=== PATIENT | female | born 1970 | race Two or more races ===

== ENCOUNTER → 2025-02-07 | Outpatient (CLI) | payer OTHER, SELFPAY ==
--- NOTE | 2025-02-07 11:15 | XR_ITS ---
Examination: Screening digital mammography, bilateral Computer aided detection 3-D breast Tomosynthesis, bilateral Date and time of exam: February 07, 2025 1120 hours Compared to mammograms dating to July 25, 2018 Indication: Screening Technique: Nonmagnified MLO, CC views of the breasts to been obtained, reconstructed from 3-D Tomosynthesis images. R2 computer aided detection program utilized for evaluation of suspicious masses and/or abnormal calcifications. 3-D Tomosynthesis images obtained. Findings: Scattered areas of fibroglandular density Breast biopsy marker upper outer right breast Focal asymmetry remains 10 mm inner right breast on the CC view Impression: BI-RADS Category 0: Incomplete: Need additional imaging evaluation Given the right breast biopsy 2022 11:00 nodule, recommend follow-up right breast sonography to compare with the October 15, 2022 exam
== END | disposition home or self-care (01) ==
LOC: CDIM 10:58
PROVIDERS: PCP Family Medicine
DX: Z12.31 Encounter for screening mammogram for malignant neoplasm of breast (principal); N63.11 Unspecified lump in the right breast, upper outer quadrant
CPT/HCPCS: 77063; 77067

== ENCOUNTER → 2025-05-07 | Outpatient (CLI) | payer OTHER, SELFPAY ==
--- NOTE | 2025-05-07 12:30 | XR_ITS ---
Examination: Breast ultrasound, unilateral, right complete Date and time of exam: May 07, 2025 1244 hours, compared to right breast sonogram October 15, 2022 INDICATIONS: BI-RADS 4 suspicious nodule 11:00 position right breast on sonogram October 15, 2022, negative breast biopsy December 05, 2022, mammogram February 07, 2025 focal asymmetry 10 mm inner right breast on the CC view Technique: Real-time gonzales scale ultrasonographic imaging performed right breast including all 4 quadrants as well as nipple retroareolar and axillary region. Findings: 12:00 cyst 3 by 4 x 4 millimeter 1:00 nodule circumscribed 6 x 3 x 5 mm 8:00 nodule circumscribed 7 x 5 x 5 mm 11:00 nodule indistinct margins with breast biopsy marker 9 x 8 x 10 mm IMPRESSION: BI-RADS Category 3: Probably benign findings Continued 3-6 month right breast sonogram follow-up strongly recommended to document stability of 11:00 nodule right breast
== END | disposition home or self-care (01) ==
LOC: CDIM 12:22
DX: N63.11 Unspecified lump in the right breast, upper outer quadrant (principal)
CPT/HCPCS: 76641